=== PATIENT | female | born 1955 | race Caucasian/White ===

== ENCOUNTER 2023-10-28 21:48 | Emergency (ER) | payer MEDICARE, MEDICAID, SELFPAY ==
[2023-10-28 22:19] VITALS: BP 120/69; PULSE 88; RESP 20; O2SAT 95
[2023-10-28 22:29] VITALS: BP 125/57; PULSE 102; O2SAT 100; BMI 16.9
--- NOTE | 2023-10-28 22:34 | PC.NURSE ---
Pt reporting hx of multiple fractures reporting bone pain 07/07. hx of osteoporosis and arthritis. Pt also drinking vodka and amber-clarissa tonight. Per EMS, patient having pain after just moving into independent living. Patient yelling at this nurse that she wants to see a doctor and wants pain medicine as well as xrays R-hip and leg. Pt yelling t this nurse she is not going to stay here all night and that she wants to leave and get an ambulance. Explained that she does not qualify. MD at bedside at this time.
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
[2023-10-28] MEDS: OLANZapine 10 MG VIAL 5 MG IM (23:20)
[2023-10-28] MEDS: Midazolam HCl/PF 2 MG/2 ML VIAL IM (23:20)
[2023-10-28] MEDS: diphenhydrAMINE HCL 50 MG/ML VIAL IM (23:20)
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
[2023-10-29] MEDS: droPERidol 5 MG/2 ML VIAL IM (01:51)
[2023-10-29 02:40] LABS: Appearance Urine Clear; Color Urine Yellow; Glucose Urine UA Negative (Negative); Leukocyte Esterase Urine Negative (Negative); Nitrite Urine Negative (Negative); PH 6.5 (5.0-9.0); Specific Gravity - Urine <= 1.005 (1.005-1.025); Urine Blood Negative (Negative); Urine Ketones Negative (Negative); Urine Protein Negative (Neg-Trace)
[2023-10-29 02:50] LABS: Amphetamine Screen Urine Not Detected (Not Detect); Barbiturates, Urine Not Detected (Not Detect); Benzodiazepines Screen Urine POSITIVE (Not Detect); Cannabinoid Screen Urine Not Detected (Not Detect); Cocaine Screen Urine Not Detected (Not Detect); Fentanyl, urine Not Detected (Not Detect); Opiate Screen Urine POSITIVE (Not Detect); Phencyclidine Screen Urine Not Detected (Not Detect)
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
--- NOTE | 2023-10-29 03:25 | MHC.EDTECH ---
This tech attempted to assist with obtaining labs, patient will not allow anyone to touch her,MARIN Sutton at bedside and is aware.
--- NOTE | 2023-10-29 06:04 | PC.NURSE ---
0330: Pt assisted to commode with 2 assist and helped back to bed. Pt continues to be confused and believes she is at home, continues to curse at staff and name call but able to get back into bed. Sitter remains at the bedside. Pt in bed eyes closed, RR:18, breathing even and unlabored, able to get capnography on pt while at rest. Multiple attempts made to get pt blood work and full set of vitals but pt continues to refuse and starts to become combative at any attempts. Plan of care ongoing.
--- NOTE | 2023-10-29 08:10 | PC.NURSE ---
This RN resumed care of patient at 0700, pt was up and yelling out the door that she wanted to be discharged. This RN talked with the provider who took over her care, DC placed. This RN went into the room to bring her d/c paperwork pt then started yelling at this RN that you NEED to book me an ambulance or chair van for me to leave This medical writer gave patient a bus pass, security at bedside to escort patient out of ED
== END 2023-10-29 08:29 | disposition home or self-care (01) ==
PROVIDERS: Student in an Organized Health Care Education/Training Program; Emergency Provider Emergency Medicine
DX: F10.920 Alcohol use, unspecified with intoxication, uncomplicated (principal); Y90.9 Presence of alcohol in blood, level not specified; R45.6 Violent behavior; R45.1 Restlessness and agitation
CPT/HCPCS: 80307; 81003; 96372; 99283; 99285; J1200; J1790; J2250; J2359